=== PATIENT | male | born 1985 | race Caucasian/White ===

== ENCOUNTER 2023-04-05 02:15 | Emergency (ER) | payer SELFPAY ==
[~2023-04-05] VITALS: Ht 175.3 cm; Wt 70.0 kg
[2023-04-05] MEDS ORDERED: IBUPROFEN 400 MG TABLET PO ONE (03:15)
[2023-04-05 03:27] VITALS: BP 125/84; PULSE 89; RESP 17; TEMP 98
== END 2023-04-05 05:37 | disposition home or self-care (01) ==
LOC: EMS 02:15
DX: M79.672 Pain in left foot (principal); M79.671 Pain in right foot; F17.210 Nicotine dependence, cigarettes, uncomplicated
CPT/HCPCS: 99283